=== PATIENT | male | born 1995 ===

== ENCOUNTER 2018-02-07 03:46 | Emergency (ER) | payer MEDICAID ==
[2018-02-07 04:03] VITALS: BP 149/75; PULSE 126; RESP 20; TEMP 98.8; O2SAT 98
--- NOTE | 2018-02-07 04:16 | ED PDOC ---
Lower Extremity Pain/Injury Time Seen by Provider: 02/07/18 04:04 Chief Complaint (Nursing): Lower Extremity Problem/Injury Chief Complaint (Provider): Right Ankle Pain History Per: Patient History/Exam Limitations: no limitations Onset/Duration Of Symptoms: Hrs (x1) Current Symptoms Are (Timing): Still Present Additional Complaint(s): 22 y/o male with no significant past medical history, who presents to the ED complaining of right ankle pain x1 hour. Patient reports he rolled his ankle attempting to restrain his friend. Says he continued to walk on his ankle and has since developed severe pain and swelling. Patient is ambulatory, but limping. Denies any other associated injuries or loss of consciousness. Past Medical History Reviewed: Historical Data, Nursing Documentation, Vital Signs Vital Signs: Last Vital Signs Temp 98.8 F 02/07/18 03:56 Pulse 126 H 02/07/18 03:56 Resp 20 02/07/18 03:56 BP 149/75 02/07/18 03:56 Pulse Ox 98 02/07/18 03:56 - Medical History PMH: No Chronic Diseases - Surgical History Surgical History: No Surg Hx - Family History Family History: States: Unknown Family Hx - Social History Current smoker - smoking cessation education provided: No Alcohol: None Drugs: Denies - Allergies Allergies/Adverse Reactions: Allergies Allergy/AdvReac Type Severity Reaction Status Date / Time No Known Allergies Allergy Verified 02/07/18 03:56 Review of Systems ROS Statement: Except As Marked, All Systems Reviewed And Found Negative Musculoskeletal: Positive for: Foot Pain (right ankle) Physical Exam - Reviewed Nursing Documentation Reviewed: Yes Vital Signs Reviewed: Yes - Physical Exam Extremity: Positive for: Swelling (right lateral malleolar surface 3+ edema), Other (right foot good sensaton, 2+ pulses, toes moving normally) - ECG O2 Sat by Pulse Oximetry: 98 (RA) Pulse Ox Interpretation: Normal Medical Decision Making Medical Decision Making: Time: 04:09 Initial Impression: 22 y/o male with acute ankle injury Initial Plan: --Right ankle X-Ray 3 views --Motrin Tab 600mg PO --Reevaluation Time: 05:58 X-Ray showed no fracture. Explained results to patient and advised to follow up with Podiatry clinic. Patient provided with an JARAD wrap, air cast, and crutch training. Scribe Attestation: Documented by Ross Hu, acting as a scribe for Errol Cuevas MD. Provider Scribe Attestation: All medical record entries made by the Scribe were at my direction and personally dictated by me. I have reviewed the chart and agree that the record accurately reflects my personal performance of the history, physical exam, medical decision making, and the department course for this patient. I have also personally directed, reviewed, and agree with the discharge instructions and disposition. Disposition - Clinical Impression Clinical Impression: Right ankle sprain, Ankle sprain - Patient ED Disposition Is Patient to be Admitted: No Counseled Patient/Family Regarding: Studies Performed, Diagnosis, Need For Followup - Disposition Referrals: Podiatry Clinic [Outside] Disposition: Routine/Home Disposition Time: 05:58 Condition: STABLE Instructions: Ankle Sprain Forms: Folkstr (Persian)
--- NOTE | 2018-02-07 10:00 | RAD ---
PROCEDURE: Right Ankle Radiographs. HISTORY: pain COMPARISON: None FINDINGS: BONES: Three views of the right ankle were performed for right ankle pain and trauma. There is moderate soft tissue swelling overlying the lateral malleolus. No appreciable fracture of the distal fibula is seen. No fracture is seen elsewhere. Base of the 5th metatarsal is intact. Ankle joint effusion is not excluded with soft tissue seen anterior to the tibiotalar region. Calcaneus is intact. No definite ankle mortise widening. . JOINTS: Joint effusion. No definite ankle mortise widening. . Subtalar joint is unremarkable. SOFT TISSUES: Soft tissue swelling. OTHER FINDINGS: No loose body is seen. IMPRESSION: Moderate soft tissue swelling overlying the lateral malleolus and anterior ankle region consistent with ankle sprain. No appreciable fracture. No definite ankle mortise widening.
== END 2018-02-07 06:20 | disposition home or self-care (01) ==
LOC: H.ER 03:46
DX: S93.401A Sprain of unspecified ligament of right ankle, initial encounter (principal); X50.1XXA Overexertion from prolonged static or awkward postures, initial encounter